=== PATIENT | female | born 1980 | race Caucasian/White ===

== ENCOUNTER 2021-07-02 14:03 | Outpatient (CLI) | payer MEDICARE, SELFPAY | END 2021-07-02 23:59 | disposition short-term general hospital (02) | LOC: LABSPEC 14:03 | PROVIDERS: Referring Provider Physician Assistant; Visit Provider Physician Assistant | DX: U07.1 COVID-19 (principal) | CPT/HCPCS: 87635; U0003; U0005 ==

== ENCOUNTER 2021-09-29 10:42 | Emergency (ER) | payer MEDICAID, SELFPAY ==
[2021-09-29 10:43] VITALS: BP 172/124; PULSE 83; RESP 18; TEMP 36.7; O2SAT 97; BMI 22.8
--- NOTE | 2021-09-29 11:00 | EKG12_ITS ---
Test Reason : DIZZINESS Blood Pressure : / mmHG Vent. Rate : 071 BPM Atrial Rate : 071 BPM P-R Int : 160 ms QRS Dur : 082 ms QT Int : 410 ms P-R-T Axes : 075 060 059 degrees QTc Int : 445 ms Normal sinus rhythm Normal ECG No previous ECGs available Confirmed by UZMA KHAN, HARLAN ([id number]), primer expeditor and drier MEDARDO DAVIS ([id number]) on 10/09/2021 1:29:40 PM Referred By: ANASTACIO Confirmed By:ELLIOTT GUSMAN MD
--- NOTE | 2021-09-29 11:02 | EX.ED.DYSGE1 ---
HPI History of Present Illness Chief Complaint: Dizziness Informant: patient Narrative Narrative: Patient is a 40-year-old female with history of vertigo as well as being told that her blood pressure is high presenting with dizziness. Patient notes she felt fine this morning when she woke up. She was at work, she works at [employer], when she started to feel lightheaded and dizzy. She threw up twice. She describes it as a spinning sensation. She notes she is felt this way in the past when her blood pressure has been elevated. States she was seen in ER about a year ago and she was discharged home with a 30-day course of blood pressure medicine. She not have a primary care doctor and never followed up. She is been off any medications since then. She states remotely she has had bad bouts of vertigo requiring her to be carried to the emergency room. She also notes her mom has a history of vertigo. She has had some mild nasal congestion and fullness in her ears the last few days. Denies any ringing in her ears currently. Denies any chest pain or difficulty breathing. Denies any weakness of her extremities. No other complaints at this time. States that she has been under a lot of stress but this is normal for her. PFSH PFSH Medical History no medical history Home Medications amlodipine [Norvasc] 5 mg PO DAILY #30 tab 09/29/21 [Rx Last Taken Unknown] meclizine 25 mg PO TID #20 tab 09/29/21 [Rx Last Taken Unknown] omeprazole mg PO DAILY 09/29/21 [History Last Taken Unknown] potassium chloride 40 meq PO DAILY #10 tab 09/29/21 [Rx Last Taken Unknown] Allergy/AdvReac Type Severity Reaction Status Date / Time No Known Allergies Allergy Verified 09/29/21 10:43 Social History Smoking Status: Former smoker ROS ROS ED Constitutional Constitutional ED: Denies chills or fever(s) Eyes Eyes: Denies blurry vision, change in vision or diplopia ENT ENT ED: Reports other Details: Nasal congestion ; Denies ear pain or rhinorrhea Cardiovascular Cardiovascular: Denies chest pain or palpitations Respiratory/Chest Respiratory/Chest: Denies cough or dyspnea Gastrointestinal Gastrointestinal: Reports constipation, nausea, vomiting and other Details: Chronic constipation?stable with stool softeners ; Denies abdominal pain or diarrhea Musculoskeletal Musculoskeletal: Denies arthralgias or myalgias Integumentary Denies rash Neurologic Neurologic: Reports paresthesias LUE; Denies headache(s) or weakness Psychiatric Psychiatric: Denies anxiety or depression EXAM Physical Exam Const Vital Signs: 09/29/21 10:43 09/29/21 11:23 09/29/21 11:56 Temperature 98.0 F Temperature Source Temporal Pulse Rate 83 77 73 Respiratory Rate 18 16 14 Respiratory Effort Normal Non-Labored Respiratory Pattern Normal Blood Pressure 172/124 H 174/126 H 176/107 H Blood Pressure Mean 140 142 130 Pulse Ox 97 100 99 Oxygen Delivery Method Room Air Room Air Room Air 09/29/21 12:24 09/29/21 13:07 Temperature Temperature Source Pulse Rate 77 99 Respiratory Rate 13 15 Respiratory Effort Respiratory Pattern Blood Pressure 162/105 H 163/101 H Blood Pressure Mean 124 Pulse Ox 98 98 Oxygen Delivery Method Room Air Positive well nourished and well developed General Appearance ED: well developed and NAD HEENT Reports TM's clear and moist mucous membranes Negative for trauma Tympanic Membrane ED: Yes TM's clear Eyes PERRL and EOMs intact bilaterally Eyes Narrative: Patient has bilateral fatiguing nystagmus more pronounced with leftward gaze. Positive [place] maneuver on the right. No nystagmus with vertical gaze. Neck supple and no JVD Chest Wall inspection of chest normal and palpation of chest normal Resp normal respiratory effort and clear to auscultation bilaterally Cardio regular rate, regular rhythm and no murmurs GI normal to inspection, nondistended, normoactive bowel sounds Extremity normal to inspection General Extremety ED: Negative for edema or tenderness General Extremity: Negative for edema Neuro oriented x3, CN's II-XII intact bilaterally and no sensory deficits noted Neuro Narrative: Normal coordination. No truncal ataxia. Normal gait. Sensorium / Orientation: alert Motor Exam: strength 5/5 throughout; Negative for general weakness Psych mental status grossly normal Skin no rashes or lesions noted and no wounds MDM MDM MDM Narrative Medical decision making narrative: Patient is evaluated for dizziness with episodes of vomiting. Physical exam is consistent with peripheral vertigo. She has a positive [place] maneuver on the right. Patient is hypertensive in the emergency room with elevated diastolic as well. She has a normal neurologic exam. She has no focal neurologic deficits. She has not findings consistent with hypertensive emergency. Patient states her blood pressure has been elevated for at least the last year but she does not see a doctor. Patient is given a dose of meclizine as well as Zofran in the emergency room. She states she is starting to feel better. She is then given a dose of potassium and Norvasc for her blood pressure as well as her hypokalemia. Patient states that she is been told her potassium is low in the past as well. I do not think this is a hypertensive emergency. Do not suspect a central process especially as patient has normal coordination, no truncal ataxia and very normal gait. She is encouraged that she really needs to follow-up with her primary care doctor. She started on a course of oral potassium as well as Norvasc. She is also given a prescription for meclizine for her symptoms. She is given referral to the [facility] clinic as well as Dr. Cortes's office. Patient is agreeable with this plan of care. She is given return precautions. Lab Data Attestation: I reviewed the patient's lab results. Labs: Laboratory Results - last 24 hr 09/29/21 09/29/21 09/29/21 11:05 11:21 11:21 WBC 6.9 RBC 4.37 Hgb 13.9 Hct 39.8 MCV 91.1 MCH 31.8 MCHC 34.9 RDW Std Deviation 40.0 RDW Coeff of Imelda 11.9 Plt Count 339 MPV 9.2 Immature Gran % (Auto) 0.400 Neut % (Auto) 62.8 Lymph % (Auto) 28.8 [place] % (Auto) 6.1 Eos % (Auto) 1.0 Baso % (Auto) 0.9 Absolute Neuts (auto) 4.3 Absolute Lymphs (auto) 1.99 Nucleated RBC % 0 Sodium 137 Potassium 2.9 L Chloride 103 Carbon Dioxide 29.0 Anion Gap 5 BUN 11 Creatinine 0.72 Estim Creat Clear Calc 80.50 Est GFR (MDRD) Af Amer 115 Est GFR (MDRD) Non-Af 95 BUN/Creatinine Ratio 15.4 Glucose 125 H Calcium 8.6 Troponin I High Sens < 3 L Urine Color Straw Urine Clarity Clear Urine pH 8.0 Ur Specific [place] 1.015 Urine Protein Negative Urine Glucose (UA) Normal Urine Ketones Negative Urine Occult Blood Negative Urine Nitrite Negative Urine Bilirubin Negative Urine Urobilinogen Normal Ur Leukocyte Esterase Negative Urine RBC 0 SEEN Urine WBC 0 SEEN Ur Squamous Epith Cells 0 SEEN Urine Bacteria 0 SEEN Urine Mucus 0 SEEN Urine Test Negative Rhythm Strip Rhythm Strip: Sinus Rhythm Rate: 71 Ectopy: None EKG Initial EKG: Attestation: I personally reviewed and interpreted this EKG as follows: Interpretation: Sinus Rhythm Comments: Normal sinus rhythm at a rate of 71 Normal axis Normal intervals Normal ST segments Discharge Plan Triage Chief Complaint: Dizziness ED Provider: Estelle Louis Dx/Rx/DC Orders Clinical Impression: Other and unspecified peripheral vertigo, Hypertension, Hypokalemia Instructions: ED BPV Vertigo, ED Hypertension New Begin Treatment, ED Hypokalemia Prescriptions: New amlodipine [Norvasc] 5 mg tablet 5 mg PO DAILY Qty: 30 RF: 0 meclizine 25 mg tablet 25 mg PO TID Qty: 20 RF: 0 potassium chloride 20 mEq tablet extended release 40 meq PO DAILY Qty: 10 RF: 0 No Action omeprazole 20 mg Capsule,Delayed Release(Dr/Ec) PO DAILY RF: 0 Primary Care Provider: Care Physician,No Primary Referrals: Malgorzata Cortes DO [STAFF PHYSICIAN] - Marci Garcia [NON-STAFF] - As soon as possible Care Physician,No Primary [Primary Care Provider] - Disposition Disposition: Home, Self Care Discharge Date/Time: 09/29/21 13:12
--- NOTE | 2021-09-29 11:03 | NURSING ---
NO OLD EKGS
[2021-09-29 11:21] LABS: Bacteria 0 SEEN /hpf (None Seen); Mucous, Urine 0 SEEN /hpf (<or=2+); Red Blood Cells-Urine 0 SEEN /hpf (0-5); Squamous Epithelial Cells - UA 0 SEEN /hpf (5-10); White Blood Cells 0 SEEN /hpf (0-5)
[2021-09-29 11:23] VITALS: BP 174/126; PULSE 77; RESP 16; O2SAT 100
[2021-09-29] MEDS: Ondansetron 4 MG/2 ML Vial IV (11:23)
[2021-09-29] MEDS: Meclizine HCl 25 MG Tablet PO (11:23)
[2021-09-29 11:24] LABS: Color, Urine Straw (Yellow); Glucose, Dipstick Normal (Normal); Ketone-Dipstick Negative (Negative); Leukocyte Esterase-Dipstick Negative /ul (Negative); Nitrite-Dipstick Negative (Negative); Occult Blood-Urine Negative /ul (Negative); Protein-Dipstick Negative (Negative); Specific Gravity, Urine 1.015 (1.002-1.030); Urine Bilirubin Dipstick Negative (Negative); Urine Clarity Clear (Clear); Urine Urobilinogen Normal (Normal)
[2021-09-29 11:29] LABS: Internal QC Validated? YES +Cl - CLEAR BKGD; Pregnancy, Urine Negative Negative
[2021-09-29 11:39] LABS: Absolute Lymphocyte Count 1.99 X10^3/uL (0.83-4.51); Absolute Neutrophil Count 4.3 X10^3/uL (2.0-7.7); Basophil# 0.06 X10^3/uL; Basophil% 0.9 % (0-1); Eosinophil# 0.07 X10^3/uL; Hematocrit 39.8 % (37-47); Hemoglobin 13.9 g/dL (12.0-15.0); Lymphocyte # 1.99 X10^3/ul (0.83-4.51); Lymphocyte % 28.8 % (19-41); Mean Corp Hgb Conc 34.9 g/dL (32-36); Mean Corpuscular Hgb 31.8 pg (27.0-32.0); Mean Corpuscular Volume 91.1 fL (81-99); Mean Platelet Vol. 9.2 fl (6.2-12.0); Monocyte# 0.42 X10^3/uL; Monocyte% 6.1 % (0-10); NRBC Flagged by Analyzer 0 % (0-5); Neutrophil # 4.33 X10^3/uL (2.7-7.7); Neutrophil % 62.8 % (47-70); Platelet Count 339 K/mm3 (150-450); RBC Distribution Width CV 11.9 % (11.6-14.6); Red Blood Count 4.37 M/mm3 (4.2-5.4); White Blood Count 6.9 K/mm3 (4.4-11.0)
[2021-09-29 11:55] LABS: Anion Gap 5 (5-15); BUN 11 mg/dL (7-18); BUN/Creat Ratio 15.4 RATIO (10-20); Calcium,Total 8.6 mg/dL (8.5-10.1); Chloride 103 mmol/L (98-107); Creatinine, Serum 0.72 mg/dL (0.55-1.02); EST Glomerular Filtration Rate 95 mL/min (>60); Est Glom Filt Rate - Afr Amer 115 mL/min (>60); Glucose 125 mg/dL (74-106); Potassium 2.9 mmol/L (3.5-5.1); Sodium Level 137 mmol/L (136-145); Troponin-I HS < 3 pg/mL (3.0-54.0)
[2021-09-29 11:56] VITALS: BP 176/107; PULSE 73; RESP 14; O2SAT 99
[2021-09-29 12:24] VITALS: BP 162/105; PULSE 77; RESP 13; O2SAT 98
[2021-09-29 13:07] VITALS: BP 163/101; PULSE 99; RESP 15; O2SAT 98
[2021-09-29] MEDS: amLODIPine 5 MG Tablet PO (13:08)
[2021-09-29] MEDS: Potassium Chloride Oral Tablet 20 MEQ 40 MEQ PO (13:08)
== END 2021-09-29 13:12 | disposition home or self-care (01) ==
PROVIDERS: Emergency Provider Emergency Medicine; Visit Provider Emergency Medicine
DX: H81.399 Other peripheral vertigo, unspecified ear (principal); E87.6 Hypokalemia; I10 Essential (primary) hypertension; Z87.891 Personal history of nicotine dependence
CPT/HCPCS: 80048; 81001; 81025; 84484; 85025; 93005; 96374; 99285; A4216; J2405

== ENCOUNTER 2022-10-10 11:09 | Emergency (ER) | payer MEDICAID, SELFPAY ==
[2022-10-10 11:11] VITALS: BP 176/102; PULSE 120; RESP 18; TEMP 36.1; O2SAT 97; BMI 23.6
[2022-10-10] MEDS: Cephalexin 500 MG Capsule PO (11:40)
--- NOTE | 2022-10-10 11:43 | EDS_ITS ---
HPI History of Present Illness Chief Complaint: General Illness Informant: patient Onset/Context/Timing Onset: Weeks (2-3) Context: Gradual Onset Timing: Continuous Quality: Itching Location: Right groin Worsened by: Movement, ambulation Relieved by: Hydrocortisone cream Narrative Narrative: Patient presents with I have an infection. Patient states that she had cellulitis of her scalp approximately 1 month ago. Patient states she was put on antibiotics at that time. Patient states it cleared up. Patient states that over the last 2 to 3 weeks she has noted an area in her right inguinal area that feels similar. Patient states she has been using hydrocortisone cream to the area. Patient states she noted some white pustules when it began. Patient states she popped these. Patient denies any discharge or drainage at this time. Patient denies any fevers or chills. Patient states her pain is worse with any movement of her right leg. [facility] Medical History (Updated 10/10/22 @ 11:[address] Efraín Buchanan DO) Cellulitis of occipital region of scalp Home Medications amlodipine 5 mg tablet (Norvasc) 5 mg PO DAILY #30 tabs 09/29/21 [Rx Last Taken Unknown] meclizine 25 mg tablet 25 mg PO TID vertigo #20 tabs 09/29/21 [Rx Last Taken Unknown] omeprazole 20 mg capsule,delayed release mg PO DAILY 09/29/21 [History Last Lester en Unknown] potassium chloride 20 mEq tablet,extended release 40 meq PO DAILY #10 tabs 09/29/21 [Rx Last Taken Unknown] sqekaot-chlvzihhncdlq-uvhgnhuh 250 mg-250 mg-65 mg tablet (Excedrin [facility]) 1 tab PO ONCE 06/30/22 [History Last Taken Unknown] doxycycline monohydrate 100 mg capsule 100 mg PO BID #20 caps 06/30/22 [Rx Last Taken Unknown] cephalexin 500 mg capsule 500 mg PO Q6 #40 CAPSULES 10/10/22 [Rx Last Taken Unknown] Allergy/AdvReac Type Severity Reaction Status Date / Time No Known Allergies Allergy Verified 10/10/22 11:13 Surgical History (Updated 10/10/22 @ 11:[address] Efraín Buchanan DO) H/O tubal ligation Hx of cholecystectomy Social History Smoking Status: Former smoker ROS ROS ED Constitutional Constitutional ED: Denies chills or fever(s) Eyes Eyes: Denies blurry vision or change in vision ENT ENT ED: Reports sore throat; Denies rhinorrhea Cardiovascular Cardiovascular: Denies chest pain or palpitations Respiratory/Chest Respiratory/Chest: Denies cough or dyspnea Gastrointestinal Gastrointestinal: Denies nausea or vomiting Genitourinary Genitourinary ED: Denies dysuria or hematuria Musculoskeletal Musculoskeletal: Reports neck pain; Denies back pain Integumentary Reports rash; Denies abscess Neurologic Neurologic: Denies headache(s) or weakness Allergic/Immunologic Allergic/Immunologic ED: Denies mouth swelling or urticaria EXAM Physical Exam Const Vital Signs: 10/10/22 11:11 Temperature 97 F L Temperature Source Temporal Pulse Rate 120 H Respiratory Rate 18 Blood Pressure 176/102 H Blood Pressure Mean 126 Pulse Ox 97 Oxygen Delivery Method Room Air Positive well nourished and well developed General Appearance ED: well developed HEENT Reports moist mucous membranes Neck supple and no JVD Resp normal respiratory effort and clear to auscultation bilaterally Cardio regular rate, regular rhythm and no murmurs GI normal to inspection, nondistended, normoactive bowel sounds and non-tender Palpation: soft Extremity normal to inspection General Extremety ED: Negative for edema or tenderness General Extremity: Negative for edema Neuro oriented x3, CN's II-XII intact bilaterally and no sensory deficits noted Sensorium / Orientation: alert Motor Exam: strength 5/5 throughout Psych mental status grossly normal Skin Skin Narrative: There is erythema and tenderness over the right inguinal skin fold. There is no evidence of any abscess. There is no discharge or drainage. There are no vesicles or pustules noted. There are no petechia noted. There is mild tenderness. There is mild warmth. MDM MDM MDM Narrative Medical decision making narrative: Patient was advised that this is a cellulitis in her inguinal area. Patient was given a dose of Keflex here. Patient was given a prescription for Keflex. Patient was instructed to keep the area clean and dry. Patient was instructed to take Tylenol or ibuprofen as needed for pain. Patient was instructed to follow-up with her primary care physician in 5 to 7 days. Patient understood and was agreeable with the plan. All questions were answered. Discharge Plan Triage Chief Complaint: General Illness ED Provider: Efraín Buchanan Dx/Rx/DC Orders Clinical Impression: Cellulitis of right groin Instructions: ED Cellulitis Prescriptions: New cephalexin [cephalexin] 500 mg capsule 500 mg PO Q6 Qty: 40 0RF No Action doxycycline monohydrate 100 mg capsule 100 mg PO BID Qty: 20 0RF Excedrin Extra Strength 250-250-65 mg tablet 1 tab PO ONCE omeprazole 20 mg Capsule,Delayed Release(Dr/Ec) PO DAILY amlodipine [Norvasc] 5 mg tablet 5 mg PO DAILY Qty: 30 0RF meclizine 25 mg tablet 25 mg PO TID Qty: 20 0RF potassium chloride 20 mEq tablet extended release 40 meq PO DAILY Qty: 10 0RF Primary Care Provider: Care Physician,No Primary Referrals: Rui Woods DO [Med Staff - Show Host/Hostess] - 5-7 Days Care Physician,No Primary [Primary Care Provider] - Disposition Disposition: Home, Self Care
== END 2022-10-10 12:03 | disposition home or self-care (01) ==
PROVIDERS: Emergency Provider Emergency Medicine; Visit Provider Emergency Medicine
DX: L03.314 Cellulitis of groin (principal); Z87.891 Personal history of nicotine dependence; Z90.49 Acquired absence of other specified parts of digestive tract; Z98.51 Tubal ligation status
CPT/HCPCS: 99283